=== PATIENT | female | born 1985 | race Caucasian/White ===

== ENCOUNTER 2021-11-03 09:21 | Outpatient (CLI) | payer BC | END 2021-11-03 09:22 | disposition home or self-care (01) | LOC: CSHMRI 09:21 | PROVIDERS: ATTEND Advanced Practice Midwife | DX: D25.9 Leiomyoma of uterus, unspecified (principal) | CPT/HCPCS: 72197 ==

== ENCOUNTER 2022-02-09 10:18 | Day surgery (SDC) | payer BC ==
[2022-02-03 12:04] VITALS: BMI 23.3
[2022-02-05 11:04] LABS: Hemoglobin 12.8 g/dL (12.0-15.5); Mean Corpuscular Hemoglobin 29.3 pg (27.0-33.0); Mean Corpuscular Volume 88.8 fl (81.6-98.3); Mean Platelet Volume 10.1 fl (7.4-10.4); Platelet Count 359 10x3/uL (150-450); RBC Distribution Width 12.2 % (11.5-14.5); Red Blood Cell (RBC) Count 4.37 10x6/uL (3.90-5.03); White Blood Cell (WBC) Count 4.3 10x3/uL (3.5-10.5)
[2022-02-05 11:28] LABS: BHCG - Serum Negative (NEGATIVE); Pregs Control Background? CLEAR/WHITE (CLR/WHITE); Pregs Control Bar Appear? YES (CONTROL BAR)
[2022-02-09] MEDS ORDERED: Gabapentin 300 MG CAP ONE (10:41)
[2022-02-09] MEDS ORDERED: Famotidine/PF 20 mg/2ml Vial ONE (10:42)
[2022-02-09] MEDS ORDERED: CeleCOXIB 100 MG CAP ONE (10:42)
[2022-02-09] MEDS ORDERED: Midazolam HCl 2 mg/2 ml Vial ONE (12:32)
[2022-02-09] MEDS ORDERED: Methylene Blue 50 MG/10 ML AMPUL ONE (12:34)
[2022-02-09] MEDS ORDERED: Bupivacaine PF 0.5% 30 ML VIAL ONE (12:34)
[2022-02-09] MEDS ORDERED: EPINEPHrine 1 MG/ML AMP ONE (12:34)
[2022-02-09] MEDS ORDERED: PROPOFOL 20 ML ONE (12:38)
[2022-02-09] MEDS ORDERED: Fentanyl 100 MCG/2 ML VIAL ONE ×6 (12:38→16:50)
[2022-02-09] MEDS ORDERED: Rocuronium Bromide 10 MG/ML (10ML VIAL) ONE (12:43)
[2022-02-09] MEDS ORDERED: Lidocaine 1% PF 5 ML VIAL ONE (12:43)
[2022-02-09] MEDS ORDERED: CEFAZOLIN 2 GM VIAL ONE (12:59)
[2022-02-09] MEDS ORDERED: SUGAMMADEX SODIUM 200 MG/2 ML VIAL ONE (13:23)
[2022-02-09] MEDS ORDERED: Tranexamic Acid 1,000 MG/10 ML VIAL ONE (13:46)
[2022-02-09] MEDS ORDERED: Ketorolac Tromethamine 30 MG/ML VIAL ONE (15:20)
[2022-02-09] MEDS ORDERED: Ondansetron PF 4 MG/2 ML Vial ONE (17:09)
== END 2022-02-09 19:30 | disposition home or self-care (01) ==
LOC: CSHSDC 10:18
PROVIDERS: ATTEND Student in an Organized Health Care Education/Training Program
PROC: 0UB94ZZ Excision of Uterus, Percutaneous Endoscopic Approach (ICD-10-PCS; principal; 2022-02-09)
DX: D25.9 Leiomyoma of uterus, unspecified (principal); N80.3 Endometriosis of pelvic peritoneum; N83.209 Unspecified ovarian cyst, unspecified side; Z79.899 Other long term (current) drug therapy; Z88.0 Allergy status to penicillin; Z20.822 Contact with and (suspected) exposure to COVID-19
CPT/HCPCS: 36415; 84703; 85027; 86850; 86900; 86901; 88305; C1713; J0171; J0690; J1885; J2250; J2405; J2704; J3010; Q9968; S0020; S0028

== ENCOUNTER 2023-08-24 09:53 | Inpatient (IN) | payer BC ==
[2023-08-23 11:11] LABS: Hematocrit 35.7 % (34.9-44.5); Hemoglobin 12.1 g/dL (12.0-15.5); Platelet Count 197 10x3/uL (150-450)
[2023-08-23 11:50] LABS: HBSAg Index 0.19 S/CO (0-0.99); Hep B Surf Ag Non-Reactive S/CO (NonReactive)
[2023-08-23 11:51] LABS: Syphilis Antibody Nonreactive (Nonreactive); Syphilis Antibody Index 0.03 S/CO (<1.00 Non-Reactive)
[~2023-08-24 09:53] MED LIST: Ketorolac Tromethamine 30 MG (1 mL) VIAL IVP SCH
[2023-08-24] MEDS ORDERED: Bicitra 30 ML UDCUP PO PRN ×3 (11:53→12:08)
[2023-08-24] MEDS ORDERED: fentaNYL 50 mcg/mL 1 mL Vial SLOW IVP PRN ×3 (11:57→23:59)
[2023-08-24] MEDS ORDERED: Meperidine HCl/PF 25 MG (1 mL) VIAL SLOW IVP PRN ×2 (11:57→13:26)
[2023-08-24] MEDS ORDERED: Promethazine HCl 25 MG/ML VIAL IM PRN ×3 (11:57→13:26)
[2023-08-24] MEDS ORDERED: diphenhydrAMINE 50 MG/ML VIAL IVP PRN ×2 (11:57→13:26)
[2023-08-24] MEDS ORDERED: Promethazine HCl 25 MG SUPP PR PRN ×2 (11:57→13:26)
[2023-08-24] MEDS ORDERED: Naloxone HCl 0.4 mg/ml Vial IVP PRN ×4 (11:57→13:26)
[2023-08-24] MEDS ORDERED: Moisturizing Cream (Eucerin) 113 GM JAR TOP PRN ×2 (11:57→13:26)
[2023-08-24] MEDS ORDERED: Ketorolac Tromethamine 30 MG (1 mL) VIAL IVP PRN ×2 (11:57→13:26)
[2023-08-24] MEDS ORDERED: Ondansetron PF 4 MG/2 ML Vial IVP PRN ×5 (11:57→13:26)
[2023-08-24] MEDS ORDERED: Naloxone HCl 0.4 mg/ml Vial IV PRN ×2 (11:57→13:26)
[2023-08-24] MEDS ORDERED: Communication Order-Pharmacy FS SCH ×2 (12:00→13:30)
[2023-08-24] MEDS ORDERED: Ketorolac Tromethamine 30 MG (1 mL) VIAL IVP SCH ×2 (12:00→23:59)
[2023-08-24] MEDS ORDERED: Misoprostol 200 MCG TAB PR PRN ×2 (12:02→18:24)
[2023-08-24] MEDS ORDERED: Famotidine/PF 20 mg/2ml Vial SLOW IVP PRN (12:02)
[2023-08-24] MEDS ORDERED: hydrALAZINE 20 MG/ML VIAL SLOW IVP PRN ×3 (12:02→18:24)
[2023-08-24] MEDS ORDERED: Methylergonovine 0.2 MG/ML VIAL IM PRN ×2 (12:02→18:24)
[2023-08-24] MEDS: Famotidine/PF 20 mg/2ml Vial SLOW IVP PRN (12:08)
[2023-08-24] MEDS ORDERED: Oxytocin 30 units/NS 500 ML 500 ML IV SCH ×2 (12:15→18:24)
[2023-08-24] MEDS ORDERED: CEFAZOLIN 2 GM in Sodium Chloride 0.9% 100 ML IVPB SCH (12:15)
[2023-08-24] MEDS ORDERED: Lactated Ringer's 1,000 ML IV SCH (12:15)
[2023-08-24] MEDS: Ketorolac Tromethamine 30 MG (1 mL) VIAL IVP SCH ×2 (14:14→21:27)
[2023-08-24] MEDS: fentaNYL 50 mcg/mL 1 mL Vial SLOW IVP PRN (15:29)
[2023-08-24 16:29] VITALS: BMI 26.6
[2023-08-24] MEDS ORDERED: Lanolin Ointment 7 GM TUBE TOP PRN (18:24)
[2023-08-24] MEDS ORDERED: diphenhydrAMINE 25 MG CAP PO PRN (18:24)
[2023-08-24] MEDS: Docusate 100 MG CAP PO SCH (21:27)
[2023-08-25 03:25] LABS: Hematocrit 28.8 % (34.9-44.5); Hemoglobin 9.9 g/dL (12.0-15.5); Mean Corpuscular HGB CONC 34.4 g/dL (32.0-36.0); Mean Corpuscular Hemoglobin 30.4 pg (27.0-33.0); Mean Corpuscular Volume 88.3 fl (81.6-98.3); Mean Platelet Volume 10.9 fl (7.4-10.4); Platelet Count 179 10x3/uL (150-450); RBC Distribution Width 12.6 % (11.5-14.5); Red Blood Cell (RBC) Count 3.26 10x6/uL (3.90-5.03); White Blood Cell (WBC) Count 13.8 10x3/uL (3.5-10.5)
[2023-08-25] MEDS: Ketorolac Tromethamine 30 MG (1 mL) VIAL IVP SCH (04:00)
[2023-08-25] MEDS: HYDROcodone/Acetaminophen 5/325 mg Tablet PO PRN ×2 (06:10→17:25)
[2023-08-25] MEDS: Prenatal Vitamin 1 TAB PO SCH (10:12)
[2023-08-25] MEDS: Lactated Ringer's 1,000 ML IV SCH (18:02)
[2023-08-26] MEDS: Oxytocin 10 UNITS/ML VIAL ONE (07:39)
[2023-08-26] MEDS: Morphine PF 10 MG/10 ML VIAL ONE (07:39)
[2023-08-26] MEDS: Dexamethasone 4 mg/ml Vial ONE (07:39)
[2023-08-26] MEDS: CEFAZOLIN 2 GM VIAL ONE (07:40)
[2023-08-26] MEDS: PHENYLEPHRINE-NS 100 MCG/ML 10 ML SYRINGE ONE ×2 (07:40)
[2023-08-26] MEDS: Boostrix 0.5 ML (Tdap) VIAL (>/=7 yrs of age) IM ONE (07:40)
[2023-08-26] MEDS: Ondansetron PF 4 MG/2 ML Vial ONE (07:40)
[2023-08-26] MEDS: Ibuprofen 800 MG TAB PO SCH (11:51)
[2023-08-26] MEDS: Simethicone Chewable 80 MG TAB PO PRN (13:00)
[2023-08-27 13:09] VITALS: BP 127/75; TEMP 98.9
[2023-08-27] MEDS: Ibuprofen 800 MG TAB PO SCH (13:29)
== END 2023-08-27 17:00 | disposition home or self-care (01) | DRG 788 ==
LOC: CSHLD 09:53 → CSHPED 16:50
PROVIDERS: ADMIT Obstetrics & Gynecology; ATTEND Obstetrics & Gynecology
PROC: 10D00Z1 Extraction of Products of Conception, Low, Open Approach (ICD-10-PCS; principal; 2023-08-24)
DX: O80 Encounter for full-term uncomplicated delivery (principal); Z3A.37 37 weeks gestation of pregnancy; Z37.0 Single live birth; O69.81X0 Labor and delivery complicated by cord around neck, without compression, not applicable or unspecified
CPT/HCPCS: 36415; 51702; 85014; 85018; 85027; 85049; 86780; 86850; 86900; 86901; 87340; J1100; J1885; J2274; J2405; J2550; J2590; J3010; J7120; S0028